=== PATIENT | female | born 1960 | race Caucasian/White ===

== ENCOUNTER → 2020-06-26 08:14 | Outpatient (BNVA) | payer OTHER, SELFPAY | PROVIDERS: PCP Internal Medicine; Visit Provider Anesthesiology | DX: G90.522 Complex regional pain syndrome I of left lower limb (principal); G89.4 Chronic pain syndrome; M54.5 Low back pain | CPT/HCPCS: 62368; 99212 ==

== ENCOUNTER → 2021-04-11 13:27 | Outpatient (BNVA) | payer OTHER, SELFPAY | PROVIDERS: PCP Internal Medicine; Visit Provider Anesthesiology | DX: G90.522 Complex regional pain syndrome I of left lower limb (principal); M54.50 Low back pain, unspecified; G89.4 Chronic pain syndrome | CPT/HCPCS: 99212 ==

== ENCOUNTER → 2021-06-25 10:24 | Outpatient (BNVA) | payer OTHER, SELFPAY | PROVIDERS: PCP Internal Medicine; Visit Provider Anesthesiology | DX: G90.522 Complex regional pain syndrome I of left lower limb (principal); G89.4 Chronic pain syndrome; M54.59 Other low back pain | CPT/HCPCS: Q3014 ==

== ENCOUNTER → 2022-10-02 09:39 | Outpatient (BNVA) | payer OTHER, SELFPAY | PROVIDERS: PCP Internal Medicine; Visit Provider Anesthesiology | DX: G90.522 Complex regional pain syndrome I of left lower limb (principal); M54.59 Other low back pain; G89.4 Chronic pain syndrome | CPT/HCPCS: 99212 ==

== ENCOUNTER 2024-02-20 10:26 | Outpatient (AMB) | payer OTHER, SELFPAY ==
--- NOTE | 2024-02-20 10:35 | A.OFFVIS_ITS ---
Vital Signs 02/20/24 10:36 Height 5 ft 4 in Weight 274 lb 8 oz BMI 47.1 BP 168/78 H Blood Pressure Location Lt brachial Position Sitting Pulse 75 Pulse Source Pulse Oximeter Pulse Oximetry (%) 98 Oxygen Delivery Method Room Air Intake Visit Reasons: Med Review Intake Note: Pain today 12/14 Museum Assistant Required: No Accompanied by: Self / Same As Patient Allergies adhesive Allergy (Verified 02/20/24 10:37) unknown beeswax Allergy (Verified 02/20/24 10:37) unknown latex Allergy (Verified 02/20/24 10:37) unknown HPI Comments Details: Patient is a pleasant 63 years old female presents today for follow up for medical refill. She is being treated in our office for CRPS of left lower extremity and receives gabapentin and intrathecal pain pump infusion of Morphine 12 milligrams/mL mixed with clonidine 270 micro g per mL and bupivacaine 15 milligrams/mL via home infusion by [facility]. Gabapentin refill was sent 2 days ago. Patient states she is planning to see Dr. Santiago in a few weeks for potential adjustment in bolus frequency. She reports humid, cold and rainy weather increases her chronic pain. Denies any recent cough, cold, infection, fever, any significant changes in her medical history, medications or recent hospitalizations. PRIOR 10/02/22 Dr. Santiago: Jordyn is in my office today with complaints on numbness and pain in her left lower extremity with Complex regional pain syndrome. She reports that when she presses the PTM but she receives numbness in the left lower extremity and unable to walk on this leg. When she does not press the PTM button her pain in the lower extremity starts to get stronger however there is no numbness in it. It looks like that the patient catheter is in the good position, the patient reports that not all the time she receives numbness weakness in the left lower extremity. I discussed the situation with her I told her that the intrathecal catheter is not fixed with its position in the CSF and freely floating there. It is possible that in 1 or several positions when she presses the PTM device the catheter appears to be very close to the spinal cord and bupivacaine exerts stronger action on the spinal cord. I requested patient to try to perform the PTM action in different positions and find in which position her PTM does not cause this complication. I will continue observation. She will continue home AIS pain pump refills. Prior: very pleasant 60 years old female who is under observation in my office with left lower extremity PAIN WITH SENSATION of aching hot burning stabbing tingling shock-like and numbness all over the left lower extremity. 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 She suffered through 7 surgeries of her knee. Attempting to fix this knee lead to total knee replacement on the left. h/o CRPS TYPE 2. 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 For the treatment of her Complex regional pain syndrome she was inserted with spinal cord stimulator with minimal or marginal help at the after that she was implanted with intrathecal drug delivery system pain pump. The pain pump is reimplanted due to the end of life of the battery by me. She has Morphine 12 milligrams/mL mixed with clonidine 190 micro g per mL and bupivacaine 15 milligrams/mL. She has 40 cc pump but currently it is 30.3 mL in the pump. He is on simple continues treatment with morphine 3.3mg a day clonidine 53 micro g per day and bupivacaine 4.3 mg per day. She is Program for PTM device and her PTM does is with lockout 4 hours 0.5 mg per activation. She reported in the past she reported that after this increase she feels heavy in her leg a and numbness in her leg. [facility] Medical History Low back pain Chronic pain syndrome Complex regional pain syndrome type 1 affecting left lower leg Review of Systems Const All systems reviewed & are unremarkable except as noted in HPI and below Physical Exam Vital Signs: Last Vital Signs Pulse 75 02/20/24 10:36 BP 168/78 H 02/20/24 10:36 Pulse Ox 98 02/20/24 10:36 Oxygen Delivery Method Room Air 02/20/24 10:36 BMI result Body Mass Index 47.1 General: Appears afebrile. Alert and oriented. Mood and affect appropriate. Follows and participates in conversation appropriately. Respiratory effort is unlabored. No cough. Able to transition from sit to stand unassisted. Ambulates with bilaterally normal heel strike and toe off. Psych Appearance: grossly normal Mental Status: mental status grossly normal Speech and movement: Normal speech and movement present and Clear speech present Affect: normal affect Attitude: cooperative Thought process: Normal thought process present Thought content: Normal thought content present, suicidality (none), no hallucinations and No Depressive thoughts present Insight: Good insight present (Psych) Judgement: Good judgement present (Psych) Results Reviewed Results Reviewed: No imaging results are available for review. Assessment & Plan Assessment & Plan (1) Complex regional pain syndrome type 1 affecting left lower leg: Code(s): G90.522 - Complex regional pain syndrome I of left lower limb Category: Medical (2) Chronic pain syndrome: Code(s): G89.4 - Chronic pain syndrome Category: Medical (3) Low back pain: Code(s): M54.5 - Low back pain Category: Medical (4) Presence of intrathecal pump: Code(s): Z97.8 - Presence of other specified devices Category: Medical Plan Gabapentin refill was sent on 02/18/24 to patient's pharmacy. Patient continues ITDD pain pump home infusion of Morphine 12 milligrams/mL mixed with clonidine 270 micro g per mL and bupivacaine 15 milligrams/mL via home infusion by [facility]. Denies any untoward effects with infusion. Patient will follow up with Dr. Santiago in 2 weeks for potential PTM bolus frequency adjustments. Follow-up as needed. Coding Level of Care Code Est Pt Level 3 (16244) Diagnoses Complex regional pain syndrome type 1 affecting left lower leg G90.522 Chronic pain syndrome G89.4 Low back pain M54.5 Presence of intrathecal pump Z97.8
[2024-02-20 10:36] VITALS: BP 168/78; PULSE 75; O2SAT 98; BMI 47.1
== END 2024-02-20 10:53 | disposition home or self-care (01) ==
PROVIDERS: PCP Internal Medicine; Visit Provider Nurse Practitioner Family
DX: G90.522 Complex regional pain syndrome I of left lower limb (principal); G89.4 Chronic pain syndrome; M54.50 Low back pain, unspecified; Z97.8 Presence of other specified devices
CPT/HCPCS: 99213

== ENCOUNTER → 2024-02-20 10:26 | Outpatient (BNVA) | payer OTHER, SELFPAY | PROVIDERS: PCP Internal Medicine; Visit Provider Nurse Practitioner Family ==

== ENCOUNTER 2024-03-22 11:48 | Outpatient (AMB) | payer OTHER, SELFPAY ==
--- NOTE | 2024-03-22 11:50 | MHC.OFFVIS ---
Vital Signs 03/22/24 11:59 Height 5 ft 4 in Weight 274 lb 8 oz BMI 47.1 BP 150/78 H Blood Pressure Location Lt brachial Position Sitting Respiration 16 Pulse 89 Pulse Source Pulse Oximeter Pulse Oximetry (%) 94 Oxygen Delivery Method Room Air Intake Visit Reasons: Discuss Increasing Pump Dose Intake Note: Patient comes in to discuss ITDD pump increase. Reports pain 01/13. Allergies adhesive Allergy (Verified 03/22/24 11:59) unknown beeswax Allergy (Verified 03/22/24 11:59) unknown latex Allergy (Verified 03/22/24 11:59) unknown HPI Comments Details: Jordyn is back in my office with reports of not adequate pain control from her pain pump. She reports that she takes Tylenol in between the doses of the pump however she reports that 4 times a day is not enough for her to have good pain relief. I proposed to increase the number of the doses to 5 doses a day every 4 hours. The adjustment was made into the pain pump. This will bring the doses of the medication higher and therefore it current concentration her refill will come earlier. She needs to refill her pain pump in 29 days. She is under care of pain tech nursing division and she was informed that no later than in 29 days she would have to refill her pump. PRIOR 10/02/22 Dr. Santiago: Jordyn is in my office today with complaints on numbness and pain in her left lower extremity with Complex regional pain syndrome. She reports that when she presses the PTM but she receives numbness in the left lower extremity and unable to walk on this leg. When she does not press the PTM button her pain in the lower extremity starts to get stronger however there is no numbness in it. It looks like that the patient catheter is in the good position, the patient reports that not all the time she receives numbness weakness in the left lower extremity. I discussed the situation with her I told her that the intrathecal catheter is not fixed with its position in the CSF and freely floating there. It is possible that in 1 or several positions when she presses the PTM device the catheter appears to be very close to the spinal cord and bupivacaine exerts stronger action on the spinal cord. I requested patient to try to perform the PTM action in different positions and find in which position her PTM does not cause this complication. I will continue observation. She will continue home AIS pain pump refills. Prior: very pleasant 60 years old female who is under observation in my office with left lower extremity PAIN WITH SENSATION of aching hot burning stabbing tingling shock-like and numbness all over the left lower extremity. 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 She suffered through 7 surgeries of her knee. Attempting to fix this knee lead to total knee replacement on the left. h/o CRPS TYPE 2. 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 For the treatment of her Complex regional pain syndrome she was inserted with spinal cord stimulator with minimal or marginal help at the after that she was implanted with intrathecal drug delivery system pain pump. The pain pump is reimplanted due to the end of life of the battery by me. She has Morphine 12 milligrams/mL mixed with clonidine 190 micro g per mL and bupivacaine 15 milligrams/mL. She has 40 cc pump but currently it is 30.3 mL in the pump. He is on simple continues treatment with morphine 3.3mg a day clonidine 53 micro g per day and bupivacaine 4.3 mg per day. She is Program for PTM device and her PTM does is with lockout 4 hours 0.5 mg per activation. She reported in the past she reported that after this increase she feels heavy in her leg a and numbness in her leg. [facility] Medical History Low back pain Chronic pain syndrome Complex regional pain syndrome type 1 affecting left lower leg Review of Systems Const All systems reviewed & are unremarkable except as noted in HPI and below Physical Exam Vital Signs: Last Vital Signs Pulse 89 03/22/24 11:59 Resp 16 03/22/24 11:59 BP 150/78 H 03/22/24 11:59 Pulse Ox 94 03/22/24 11:59 Oxygen Delivery Method Room Air 03/22/24 11:59 BMI result Body Mass Index 47.1 General: Appears afebrile. Alert and oriented. Mood and affect appropriate. Follows and participates in conversation appropriately. Respiratory effort is unlabored. No cough. Able to transition from sit to stand unassisted. Ambulates with bilaterally normal heel strike and toe off. Psych Appearance: grossly normal Mental Status: mental status grossly normal Speech and movement: Normal speech and movement present and Clear speech present Affect: normal affect Attitude: cooperative Thought process: Normal thought process present Thought content: Normal thought content present, suicidality (none), no hallucinations and No Depressive thoughts present Insight: Good insight present (Psych) Judgement: Good judgement present (Psych) Assessment & Plan Assessment & Plan (1) Complex regional pain syndrome type 1 affecting left lower leg: Code(s): G90.522 - Complex regional pain syndrome I of left lower limb Category: Medical (2) Chronic pain syndrome: Code(s): G89.4 - Chronic pain syndrome Category: Medical (3) Low back pain: Code(s): M54.5 - Low back pain Category: Medical (4) Presence of intrathecal pump: Code(s): Z97.8 - Presence of other specified devices Category: Medical Plan Interrogation of the pump was made and the patient medication was adjusted to for 5 doses on PTM every 4 hours. Patient continues ITDD pain pump home infusion of Morphine 12 milligrams/mL mixed with clonidine 270 micro g per mL and bupivacaine 15 milligrams/mL via home infusion by [facility]. Denies any untoward effects with infusion. Coding Level of Care Code Est Pt Level 3 (97984) Diagnoses Complex regional pain syndrome type 1 affecting left lower leg G90.522 Chronic pain syndrome G89.4 Low back pain M54.5 Presence of intrathecal pump Z97.8
[2024-03-22 11:59] VITALS: BP 150/78; PULSE 89; RESP 16; O2SAT 94; BMI 47.1
== END 2024-03-22 12:10 | disposition home or self-care (01) ==
PROVIDERS: PCP Internal Medicine; Visit Provider Anesthesiology
DX: G90.522 Complex regional pain syndrome I of left lower limb (principal); G89.4 Chronic pain syndrome; M54.50 Low back pain, unspecified; Z97.8 Presence of other specified devices
CPT/HCPCS: 99213

== ENCOUNTER → 2024-03-22 11:48 | Outpatient (BNVA) | payer OTHER, SELFPAY | PROVIDERS: PCP Internal Medicine; Visit Provider Anesthesiology ==